=== PATIENT | male | born 1975 | race Caucasian/White ===

== ENCOUNTER 2021-12-06 11:39 | Inpatient (IN) | payer MEDICAID ==
[2021-12-06] MEDS ORDERED: Sodium Chloride 0.9% 10 ML Syringe FLUSH PRN (11:52)
[2021-12-06] MEDS ORDERED: cefTRIAXone 2 GM in Sodium Chloride 0.9% 100 ML IV ONE (12:18)
[2021-12-06 12:36] LABS: CORONAVIRUS COVID-19 NAA NEGATIVE (NEGATIVE)
[2021-12-06] MEDS ORDERED: Sodium Chloride 0.9% 1,000 ML IV ONE ×3 (12:41→13:49)
[2021-12-06] MEDS ORDERED: Sodium Chloride 0.9% 1,000 ML ONE (12:43)
[2021-12-06] MEDS ORDERED: Magnesium Sulfate/Water 2 GM in Premix Bag 1 BAG IV ONE (16:07)
[2021-12-06] MEDS: Albuterol 0.083% 2.5 MG/3 ML Neb Soln NEB PRN (17:58)
[2021-12-06] MEDS ORDERED: Vancomycin 2 GM in Sodium Chloride 0.9% 500 ML IV SCH (18:00)
[2021-12-06] MEDS ORDERED: Norepinephrine 4 MG in Dextrose 5% in Water 246 ML IV SCH ×2 (19:00)
[2021-12-06] MEDS: Cefepime 2 GM in Sodium Chloride 0.9% 50 ML IV SCH ×2 (19:10→20:19)
[2021-12-06] MEDS: methylPREDNISolone Sodium Succinate 125 MG/2 ML SDV IVPUSH SCH ×2 (19:46→20:18)
[2021-12-06] MEDS: Albuterol/Ipratropium 3.0-0.5 MG/3 ML Neb Soln NEB SCH (20:52)
[2021-12-06] MEDS ORDERED: methylPREDNISolone Sod Succ 125 MG in Sodium Chloride 0.9% 250 ML IV SCH (21:00)
[2021-12-06] MEDS ORDERED: Furosemide 20 MG/2 ML VIAL IVPUSH ONE (22:23)
[2021-12-07] MEDS ORDERED: 50% Dextrose in Water 50 ML Syringe IVPUSH PRN ×2 (00:14→07:16)
[2021-12-07] MEDS: Albuterol/Ipratropium 3.0-0.5 MG/3 ML Neb Soln NEB SCH ×3 (02:51→15:57)
[2021-12-07] MEDS ORDERED: Furosemide 40 MG/4 ML VIAL IVPUSH ONE ×2 (07:14→12:31)
[2021-12-07] MEDS ORDERED: Insulin Regular, Human 100 Units/ML 3 ML Vial IVPUSH ONE (07:15)
[2021-12-07] MEDS ORDERED: Calcium Gluconate 10% 1 GM/10 ML SDV IVPUSH ONE (07:15)
[2021-12-07] MEDS: methylPREDNISolone Sodium Succinate 125 MG/2 ML SDV IVPUSH SCH (08:07)
[2021-12-07] MEDS: Cefepime 2 GM in Sodium Chloride 0.9% 50 ML IV SCH (08:08)
[2021-12-07] MEDS ORDERED: Furosemide 40 MG/4 ML VIAL ONE (12:32)
[2021-12-07] MEDS ORDERED: Midazolam 50 MG in Sodium Chloride 0.9% 40 ML IV SCH (13:00)
[2021-12-07] MEDS ORDERED: Etomidate 2 MG/ML 20 ML SDV IVPUSH ONE (13:10)
[2021-12-07] MEDS ORDERED: Rocuronium 50 MG/5 ML Vial ONE (13:10)
[2021-12-07] MEDS ORDERED: EPINEPHrine 1 MG/ML SDV ONE (13:28)
[2021-12-07] MEDS: propofoL 100 ML IV SCH ×2 (13:40→15:35)
[2021-12-07] MEDS: Albuterol 0.083% 2.5 MG/3 ML Neb Soln NEB PRN (13:43)
[2021-12-07] MEDS ORDERED: Atropine 1% Ophth Soln 5 ML BOTTLE SL SCH (15:30)
[2021-12-07] MEDS ORDERED: Rivaroxaban 10 MG Tab PO SCH (16:00)
== END 2021-12-07 18:28 | disposition expired | DRG 871 ==
LOC: JD.ED 11:39 → JD.ICU 15:25
PROVIDERS: ADMIT Internal Medicine; ATTEND Internal Medicine
PROC: 3E033XZ Introduction of Vasopressor into Peripheral Vein, Percutaneous Approach (ICD-10-PCS; principal; 2021-12-06)
PROC: 0BH17EZ Insertion of Endotracheal Airway into Trachea, Via Natural or Artificial Opening (ICD-10-PCS; 2021-12-06)
PROC: 5A1935Z Respiratory Ventilation, Less than 24 Consecutive Hours (ICD-10-PCS; 2021-12-06)
PROC: 5A09357 Assistance with Respiratory Ventilation, Less than 24 Consecutive Hours, Continuous Positive Airway Pressure (ICD-10-PCS; 2021-12-07)
DX: A41.9 Sepsis, unspecified organism (principal); J18.9 Pneumonia, unspecified organism; I21.4 Non-ST elevation (NSTEMI) myocardial infarction; J96.01 Acute respiratory failure with hypoxia; J96.02 Acute respiratory failure with hypercapnia; N17.9 Acute kidney failure, unspecified; J44.0 Chronic obstructive pulmonary disease with (acute) lower respiratory infection; F17.210 Nicotine dependence, cigarettes, uncomplicated; B97.4 Respiratory syncytial virus as the cause of diseases classified elsewhere; Z20.822 Contact with and (suspected) exposure to COVID-19; R65.20 Severe sepsis without septic shock; E87.5 Hyperkalemia; H91.92 Unspecified hearing loss, left ear; G89.29 Other chronic pain; M54.9 Dorsalgia, unspecified; Z98.890 Other specified postprocedural states; Z86.711 Personal history of pulmonary embolism; Z79.01 Long term (current) use of anticoagulants; Z79.899 Other long term (current) drug therapy; Z87.01 Personal history of pneumonia (recurrent); Z79.51 Long term (current) use of inhaled steroids; Z51.5 Encounter for palliative care
CPT/HCPCS: 0240U; 31500; 36415; 36600; 51702; 71045; 71045-26; 80048; 80053; 82803; 82947; 83605; 83735; 83880; 84145; 84484; 85025; 85379; 85610; 85730; 86140; 87040; 87634-QW; 93005; 93010; 94002; 94640; 94660; 96365; 99285; 99285-25; J0610; J0692; J0696; J1815-GY; J1940; J2250; J2704; J2930; J3370; J3475; J3490; J7030; J7040; J7060; J7620-GY